=== PATIENT | female | born 1990 | race African-American/Black ===

== ENCOUNTER 2020-01-13 02:28 | Inpatient (IN) ==
[2020-01-13] MEDS ORDERED: MEPERIDINE 50 MG/1 ML VIAL IV PRN (02:45)
[2020-01-13] MEDS ORDERED: ONDANSETRON 4 MG/2 ML VIAL IV PRN ×2 (02:45→16:51)
[2020-01-13] MEDS ORDERED: BUTORPHANOL 2 MG/ML VIAL IV PRN (02:45)
[2020-01-13 03:49] LABS: Basophils # 0.1 10*3/uL (0.0-0.2); Basophils % 0.7 % (0.0-0.8); Eosinophils % 0.4 % (0.00-10.9); Hematocrit 31.2 VOL% (35.7-47.0); Hemoglobin 10.8 GM/DL (12.0-16.0); Immature Granulocytes % 0.6 %; Immature Granulocytes Absolute 0.04 #; Lymphocytes # 2.1 10*3/uL (1.4-4.0); Lymphocytes % 30.7 % (21.3-54.2); Mean Corpuscular HGB Conc 34.6 GM/DL (32-36); Mean Corpuscular Volume 91.8 FL (87-102); Mean Platelet Volume 10.6 FL (9.6-12.0); Monocytes % 9.8 % (1.7-12.7); Neutrophils % 57.8 % (38.7-73.9); Platelet Count 298 T/CUMM (130-400); Red Cell Distribution Width 12.5 % (9.3-17.3); White Blood Count 6.7 T/CUMM (4-12)
[2020-01-13] MEDS ORDERED: OXYTOCIN/LR 20 UNIT/1,000 ML BAG IV SCH (06:00)
[2020-01-13] MEDS ORDERED: AMPICILLIN INJ 2,000 MG in SODIUM CHLORIDE 0.9% 100 ML IV ONE (06:00)
[2020-01-13] MEDS: LACTATED RINGERS 1,000 ML IV SCH ×3 (06:16→13:59)
[2020-01-13] MEDS ORDERED: ePHEDrine 50 MG/ML VIAL IV PRN (07:08)
[2020-01-13] MEDS ORDERED: diphenhydrAMINE 50 MG/1 ML VIAL IV PRN (07:08)
[2020-01-13] MEDS ORDERED: FAMOTIDINE 20 MG/2 ML VIAL IV ONE (07:08)
[2020-01-13] MEDS ORDERED: PROMETHAZINE 25 MG/1 ML VIAL IM PRN (07:08)
[2020-01-13] MEDS ORDERED: hydrOXYzine HCL 25 MG/1 ML VIAL IM PRN (07:08)
[2020-01-13] MEDS ORDERED: NALOXONE 0.4 MG/ML VIAL IV PRN (07:08)
[2020-01-13] MEDS ORDERED: CITRIC ACID/SODIUM CITRATE 30 ML UDCUP PO ONE (07:08)
[2020-01-13] MEDS: fentaNYL 2 MCG/ROPIV 0.2% EPID 100 ML EPIDURAL SCH ×2 (09:47→14:51)
[2020-01-13] MEDS: AMPICILLIN INJ 1,000 MG in SODIUM CHLORIDE 0.9% 100 ML IV SCH ×2 (10:15→13:52)
[2020-01-13] MEDS ORDERED: miSOPROStoL 200 MCG TABLET ONE (10:23)
[2020-01-13] MEDS ORDERED: TRANEXAMIC ACID 1,000 MG/10 ML VIAL ONE (10:24)
[2020-01-13] MEDS ORDERED: METHYLERGONOVINE 0.2 MG/1 ML AMP ONE (10:24)
[2020-01-13] MEDS ORDERED: CARBOPROST TROMETHAMINE 250 MCG/ML AMP IM ONE (10:24)
[2020-01-13] MEDS ORDERED: SODIUM CHLORIDE 0.9% 0 ML IV ONE (10:25)
[2020-01-13 12:29] LABS: Bacteria,Urine Occasional /HPF (Few); Bilirubin,Urine Negative (Negative); Blood, Urine Negative (Negative); Glucose,Urine (UA) Negative (Negative); Ketones,Urine 20 mg/dL (Negative); Nitrite,Urine Negative (Negative); Protein,Urine Negative; RBC,Urine <1 /HPF (0-4); Squamous Epithelial Cell,Urine Occasional /HPF (0-10); Urine Appearance CLEAR (Clear); Urine Color Straw (Yellow); Urine Specific Gravity 1.006 (1.001-1.035); Urine Urobilinogen < 2.0 EU/DL (0.2-1.0); WBC,Urine <1 /HPF (0-6)
[2020-01-13 16:46] LABS: Cord Venous Blood HCO3 23.5 MMOL/L; Cord Venous Blood PCO2 35.4 MMHG; Cord Venous Blood PO2 45.1
[2020-01-13] MEDS ORDERED: ACETAMINOPHEN 500 MG TABLET PO PRN (16:51)
[2020-01-13] MEDS ORDERED: BISACODYL 10 MG SUPP RECTAL PRN (16:51)
[2020-01-13] MEDS ORDERED: MAGNESIUM HYDROXIDE SUSP 30 ML UDCUP PO PRN (16:51)
[2020-01-13] MEDS ORDERED: LACTATED RINGERS 1,000 ML IV SCH (17:00)
[2020-01-13] MEDS: DOCUSATE SODIUM 100 MG CAPSULE PO SCH (21:49)
[2020-01-14] MEDS: IBUPROFEN 800 MG TABLET PO PRN (00:25)
[2020-01-14 05:28] LABS: Basophils # 0.1 10*3/uL (0.0-0.2); Basophils % 0.5 % (0.0-0.8); Eosinophils % 0.3 % (0.00-10.9); Hematocrit 29.3 VOL% (35.7-47.0); Hemoglobin 10.1 GM/DL (12.0-16.0); Immature Granulocytes % 0.5 %; Immature Granulocytes Absolute 0.06 #; Lymphocytes # 2.1 10*3/uL (1.4-4.0); Lymphocytes % 18.6 % (21.3-54.2); Mean Corpuscular HGB Conc 34.5 GM/DL (32-36); Mean Corpuscular Volume 91.6 FL (87-102); Mean Platelet Volume 10.6 FL (9.6-12.0); Monocytes % 10.5 % (1.7-12.7); Neutrophils % 69.6 % (38.7-73.9); Platelet Count 250 T/CUMM (130-400); Red Cell Distribution Width 12.5 % (9.3-17.3); White Blood Count 11.3 T/CUMM (4-12)
[2020-01-14] MEDS: DOCUSATE SODIUM 100 MG CAPSULE PO SCH ×2 (08:53→21:29)
[2020-01-14] MEDS: MULTIVITAMIN (PRENATAL) TABLET PO SCH (08:53)
[2020-01-15] MEDS: IBUPROFEN 800 MG TABLET PO PRN (09:08)
[2020-01-15] MEDS: MULTIVITAMIN (PRENATAL) TABLET PO SCH (09:08)
[2020-01-15] MEDS: DOCUSATE SODIUM 100 MG CAPSULE PO SCH (09:08)
[2020-01-15 09:23] VITALS: BP 118/78
== END 2020-01-15 13:25 | disposition home or self-care (01) | DRG 807 ==
LOC: N.LDOUT 02:28 → N.LD 02:29 → N.OB 20:25
PROVIDERS: ADMIT Obstetrics & Gynecology; ATTEND Obstetrics & Gynecology